=== PATIENT | male | born 1935 | race Two or more races ===

== ENCOUNTER 2016-10-26 21:16 | Emergency (ER) | payer MEDICARE, OTHER ==
[~2016-10-26] VITALS: Ht 172.7 cm; Wt 78.9 kg
[2016-10-26] MEDS ORDERED: ONDANSETRON HCL/PF 4 MG/2 ML VIAL IVP ONE (21:30)
[2016-10-26] MEDS ORDERED: IV NS 0.9% 500 ML BAG IV ONE (21:30)
--- NOTE | 2016-10-26 21:30 | NUR ---
to bed 1 ambulatroy bib son c/o n/v x2 after eating spanish food. pt aaox4 no acute distress noted, resp even and unlabored. pending er md rothman.
--- NOTE | 2016-10-26 21:31 | NUR ---
elmira [employer] DRIVER at bedside to lorna pt with orders received.
--- NOTE | 2016-10-26 21:32 | NUR ---
started sl 18g to [facility], blood drawn and sent to lab.
[2016-10-26] MEDS ORDERED: ONDANSETRON HCL/PF 4 MG/2 ML VIAL ONE (21:42)
[2016-10-26 21:43] LABS: BASOPHILS # (AUTO) 0.2 /CMM (0.0-0.2); BASOPHILS % (AUTO) 1.5 % (0.0-2.0); EOSINOPHILS # (AUTO) 0.1 /CMM (0.0-0.7); EOSINOPHILS % (AUTO) 0.5 % (0.0-6.0); HEMATOCRIT 42 % (39-51); HEMOGLOBIN 14.1 g/dL (13.5-17.5); LYMPHOCYTES # (AUTO) 0.9 /CMM (0.8-4.8); LYMPHOCYTES % (AUTO) 6.9 % (20.0-44.0); MEAN CORPUSCULAR HEMOGLOBIN 32 PG (26.0-33.0); MEAN CORPUSCULAR HGB CONC 34 g/dl (31.0-36.0); MEAN CORPUSCULAR VOLUME 94 fL (80-96); MONOCYTES # (AUTO) 0.5 /CMM (0.1-1.30); NEUTROPHILS % (AUTO) 87.1 % (43.0-81.0); PLATELET COUNT (AUTO) 161 /CMM (150-450); RDW COEFFICIENT OF VARIATION 12.6 (11.5-15.0); RED BLOOD CELL COUNT(AUTO) 4.41 MIL/uL (4.5-6.0); WHITE BLOOD COUNT (AUTO) 12.7 K/uL (4.3-11.0)
[2016-10-26 21:54] LABS: CALCIUM, SERUM 8.3 mg/dL (8.5-10.1); CARBON DIOXIDE 29 mmol/L (21-32); CHLORIDE 103 mmol/L (98-107); CREATININE 1.1 mg/dL (0.6-1.3); POTASSIUM 3.8 mmol/L (3.5-5.1); SODIUM SERUM 138 mmol/L (136-145); UREA NITROGEN, BLOOD 19 mg/dL (7-18)
[2016-10-26 21:57] LABS: INR 0.95 (0.87-1.13); PROTHROMBIN TIME 9.9 SECS (9.5-12.7)
[2016-10-26 21:59] LABS: GLUCOSE 146 mg/dL (74-106)
--- NOTE | 2016-10-26 22:01 | NUR ---
dr. yarbrough at bedside to re-eval pt.
[2016-10-26 22:02] LABS: TROPONIN I 0.024 ng/mL (0.00-0.056)
[2016-10-26] MEDS ORDERED: ASPIRIN 81 MG TAB.CHEW ONE (22:14)
[2016-10-26] MEDS ORDERED: FAMOTIDINE/PF INJ 20 MG/2 ML VIAL IV ONE ×2 (22:15→22:30)
--- NOTE | 2016-10-26 22:23 | NUR ---
CALLED NURSING [employer] OPERATOR FOR TELE BED
[2016-10-26] MEDS ORDERED: ASPIRIN 81 MG TAB.CHEW PO ONE (22:30)
--- NOTE | 2016-10-26 23:03 | NUR ---
IV removed. Catheter intact and site benign. Pressure and 4x4 applied to site. No bleeding noted. Patient discharged to home in stable condition. Written and verbal after care instructions given. Patient verbalizes understanding of instruction. ambulatory with a steady gait
[2016-10-26 23:05] VITALS: BP 138/74
== END 2016-10-26 23:06 | disposition home or self-care (01) ==
LOC: ER 21:18
DX: R11.2 Nausea with vomiting, unspecified (principal); I10 Essential (primary) hypertension; R79.1 Abnormal coagulation profile
CPT/HCPCS: 36415; 71010; 80048; 83690; 84484; 85025; 85730; 93005; 96374; 96375; 99285; A4606; J2405; J3490; J7040; Z7610

== ENCOUNTER 2021-12-01 19:52 | Inpatient (IN) | payer MEDICARE, OTHER ==
[~2021-12-01] VITALS: Ht 162.6 cm; Wt 72.6 kg
--- NOTE | 2021-12-01 20:08 | NUR ---
PATIENT BIBRA FROM HOME C/O NECK AND BODY PAIN. PATIENT WAS SEEN AT A DIFFERENT HOSPITAL AND WAS PRESCRIBED NORCO, LAST TAKEN AT 1830 WITH NO RELIEF. PATIENT ALERT AND ORIENTED X3. AMBULATORY BUT BROUGHT IN BY STRETCHER AND PLACED IN BED 11 ON MONITOR AND POX AWAITING MD PHAM.
--- NOTE | 2021-12-01 20:18 | NUR ---
BLOOD COLLECTED AND SENT TO LAB
[2021-12-01] MEDS ORDERED: HYDROMORPHONE 1 MG/1 ML DISP.SYRIN ONE (20:52)
[2021-12-01 20:57] LABS: BASOPHILS % (AUTO) 0.5 % (0.0-2.0); EOSINOPHILS % (AUTO) 0.4 % (0.0-6.0); HEMATOCRIT 27 % (39-51); HEMOGLOBIN 8.8 g/dL (13.5-17.5); LYMPHOCYTES # (AUTO) 1.4 K/uL (0.8-4.8); LYMPHOCYTES % (AUTO) 27.5 % (20.0-44.0); MEAN CORPUSCULAR HGB CONC 33 g/dl (31.0-36.0); MEAN CORPUSCULAR VOLUME 96 fL (80-96); MONOCYTES # (AUTO) 0.3 K/uL (0.1-1.30); MONOCYTES % (AUTO) 6.6 % (2.0-12.0); NEUTROPHILS # (AUTO) 3.2 K/uL (1.8-8.9); RED BLOOD CELL COUNT(AUTO) 2.78 MIL/uL (4.5-6.0); WHITE BLOOD COUNT (AUTO) 4.9 K/uL (4.3-11.0)
[2021-12-01] MEDS ORDERED: HYDROMORPHONE INJ 2 MG/ML DISP.SYRIN IV ONE (21:00)
[2021-12-01 21:23] LABS: PLATELET COUNT (AUTO) 16 K/uL (150-450)
--- NOTE | 2021-12-01 21:23 | NUR ---
PLATELETS 16
[2021-12-01 21:46] LABS: CALCIUM, SERUM 8.6 mg/dL (8.5-10.1); CREATININE 0.9 mg/dL (0.6-1.3); POTASSIUM 5.3 mmol/L (3.5-5.1)
[2021-12-01 21:48] LABS: ALBUMIN 3.7 g/dL (3.4-5.0); BILIRUBIN,DIRECT 0.3 mg/dL (0.0-0.2); BILIRUBIN,TOTAL 1.2 mg/dL (0.2-1.0); TOTAL PROTEIN, SERUM 6.8 g/dL (6.4-8.2)
[2021-12-01 22:31] LABS: BAND % (MANUAL) 3 % (0.0-5.0); EOSINOPHILS % (MANUAL) 1 % (0-4); LYMPHOCYTES % (MANUAL) 26 % (16-48); MONOCYTES % (MANUAL) 10 % (0-11.0); NEUTROPHILS % (MANUAL) 60 (42-76)
[2021-12-01] MEDS ORDERED: IV NS 0.9% 1,000 ML BAG IV ONE (23:30)
--- NOTE | 2021-12-02 00:46 | NUR ---
MRSA SWAB COLLECTED AND SENT TO LAB. PATIENT'S BELONGINGS LIST DONE.
[2021-12-02] MEDS ORDERED: MAG HYDROX/AL HYDROX/SIMETH 30 ML UDC PO PRN (01:00)
[2021-12-02] MEDS ORDERED: Z GUARD REMEDY 4 OZ OINT TP PRN (01:00)
[2021-12-02] MEDS ORDERED: HYDROCODONE/APAP 5/325MG TABLET PO PRN (01:00)
[2021-12-02] MEDS ORDERED: IV NS 0.9% 1,000 ML IV PRN (01:00)
[2021-12-02] MEDS ORDERED: ACETAMINOPHEN 325 MG TABLET PO PRN (01:00)
[2021-12-02] MEDS ORDERED: MORPHINE SULFATE INJ 2 MG/ML DISP.SYRIN IV PRN ×2 (01:00→10:30)
[2021-12-02] MEDS ORDERED: ZOLPIDEM TARTRATE 5 MG TABLET PO PRN (01:00)
[2021-12-02] MEDS ORDERED: HYDROMORPHONE INJ 2 MG/ML DISP.SYRIN IV PRN (01:00)
[2021-12-02] MEDS ORDERED: MAGNESIUM HYDROXIDE 30 ML UDC PO PRN (01:00)
[2021-12-02] MEDS ORDERED: ONDANSETRON HCL/PF 4 MG/2 ML VIAL IVP PRN (01:00)
[2021-12-02 05:37] LABS: BASOPHILS % (AUTO) 0.7 % (0.0-2.0); EOSINOPHILS % (AUTO) 0.4 % (0.0-6.0); HEMATOCRIT 25 % (39-51); HEMOGLOBIN 8.4 g/dL (13.5-17.5); LYMPHOCYTES # (AUTO) 1.4 K/uL (0.8-4.8); LYMPHOCYTES % (AUTO) 27.9 % (20.0-44.0); MEAN CORPUSCULAR HGB CONC 33 g/dl (31.0-36.0); MEAN CORPUSCULAR VOLUME 97 fL (80-96); MONOCYTES # (AUTO) 0.4 K/uL (0.1-1.30); MONOCYTES % (AUTO) 7.5 % (2.0-12.0); NEUTROPHILS # (AUTO) 3.3 K/uL (1.8-8.9); NEUTROPHILS % (AUTO) 63.5 % (43.0-81.0); RED BLOOD CELL COUNT(AUTO) 2.59 MIL/uL (4.5-6.0); WHITE BLOOD COUNT (AUTO) 5.1 K/uL (4.3-11.0)
[2021-12-02 05:42] LABS: PLATELET COUNT (AUTO) 13 K/uL (150-450)
[2021-12-02 06:01] LABS: ALBUMIN 3.3 g/dL (3.4-5.0); BILIRUBIN,TOTAL 1.7 mg/dL (0.2-1.0); CREATININE 0.8 mg/dL (0.6-1.3); MAGNESIUM 2.2 mg/dL (1.8-2.4); POTASSIUM 4.9 mmol/L (3.5-5.1); TOTAL PROTEIN, SERUM 5.9 g/dL (6.4-8.2)
[2021-12-02 06:07] LABS: BAND % (MANUAL) 5 % (0.0-5.0); BASOPHILS % (MANUAL) 0 % (0.0-2.0); EOSINOPHILS % (MANUAL) 0 % (0-4); LYMPHOCYTES % (MANUAL) 24 % (16-48); MONOCYTES % (MANUAL) 12 % (0-11.0); NEUTROPHILS % (MANUAL) 59 (42-76)
--- NOTE | 2021-12-02 07:53 | NUR ---
room 309-2
[2021-12-02 08:00] VITALS: BP 140/63
--- NOTE | 2021-12-02 08:05 | NUR ---
report given to Thuan SCHAFFER to continue care.
--- NOTE | 2021-12-02 08:20 | NUR ---
PATIENT ADMITTED FROM ER WITH MARYURI, ADMIT DX ARE PROSTATE CA, META-BONE, AND THROMBOCYTOPENIA REPORTED BY YAMINI. PATIENT AO X 2-3, CONFUSED OCCASIONALLY. SKIN IS WARM TO TOUCH KEEP CLEAN/DRY, INTACT SKIN. RESPIRATORY EVEN AND UNLABORED IN ROOM AIR. ORIENTED CALL LIGHT AND WITHIN REACH, WILL CONTINUE TO MONITOR.
--- NOTE | 2021-12-02 08:27 | NUR ---
patient left via gurney accompanied by emt in no distress. RN assigned at bedside to assume care.
--- NOTE | 2021-12-02 08:45 | NUR ---
PATIENT SEN BY , NEW ORDER MORPHINE 2MG IV Q4 HOURS AND D/C DILAUDID AND NORDAYLIN. NOTED AND CARRY OUT.
[2021-12-02] MEDS ORDERED: PANTOPRAZOLE 40 MG VIAL IV SCH (09:00)
--- NOTE | 2021-12-02 09:05 | NUR ---
PATIENT'S PLT LEVEL IS 13 AND MD MADE AWARE, NO NEW ORDER AT THIS TIME DUE TO CHEMO.
[2021-12-02] MEDS ORDERED: METR-147 PO (09:35)
[2021-12-02] MEDS ORDERED: ABIR250T2 PO (09:35)
[2021-12-02] MEDS ORDERED: PRED5TAB PO (09:35)
[2021-12-02] MEDS ORDERED: HYDR-3980 PO (12:01)
[2021-12-02] MEDS: METRONIDAZOLE 500 MG TABLET PO SCH ×2 (13:15→17:05)
[2021-12-02 16:00] VITALS: BP 138/76
[2021-12-02] MEDS: predniSONE 5 MG TABLET PO SCH (17:05)
[2021-12-02] MEDS ORDERED: ABIRATERONE 250 MG PO SCH (18:00)
--- NOTE | 2021-12-02 18:22 | NUR ---
RN CLOSING NOTE PATIENT IN BED RESTING, CONFUSED. IN NO ACUTE DISTRESS NOTED. RESPIRATORY EVEN AND UNLABORED IN ROOM AIR. SKIN IS WARM TO TOUCH, KEEP CLEAN/DRY. PATIENT REFUSED IVF AND INSERT NEW IV SITE. NO FURTHER C/O GENERALIZED/BONE PAINF. BED IN LOWEST POSITION AND LOCKED. BED ALARM IS ON AT ALL THE TIMES. ALL SAFETY MEASURED IN PLACED. CALL LIGHT WITHIN REACH, WILL ENDORSED TO NEXT SHIFT. Addendum: 12/02/21 at 1827 by KEELY SINGER RN ERROR
--- NOTE | 2021-12-02 18:27 | NUR ---
RN CLOSING NOTE PATIENT IN BED RESTING, CONFUSED. IN NO ACUTE DISTRESS NOTED. RESPIRATORY EVEN AND UNLABORED IN ROOM AIR. SKIN IS WARM TO TOUCH, KEEP CLEAN/DRY. PATIENT REFUSED IVF AND INSERT NEW IV SITE. NO FURTHER C/O GENERALIZED/BONE PAIN. KEPT LOWEST BED POSITION AND LOCKED. BED ALARM IS ON AT ALL THE TIMES. ALL SAFETY MEASURED IN PLACED. CALL LIGHT WITHIN REACH, WILL ENDORSED TO NEXT SHIFT.
[2021-12-02 20:00] VITALS: BP 119/61
--- NOTE | 2021-12-02 20:05 | NUR ---
MS RN OPENING NOTE PATIENT AWAKE IN BED, ALERT/ORIENTED X 2, CONFUSED AT TIMES PER DAYSHIFT RN. CAREGIVER ALEE AT BEDSIDE, PER CAREGIVER PATIENT'S FAMILY WANTS TO TRANSFER PATIENT TO [facility], SPOKE TO CHARGE NURSE, WILL ENDORSE TO DAYSHIFT RN. PT DENIES PAIN AT THIS TIME. PATIENT STABLE ON RA, NO S/S OF DISTRESS OR SOB NOTED, BREATHING EVEN AND UNLABORED. IV ACCESS ON RIGHT AC #20G INTACT AND PATENT. SAFETY MEASURES IN PLACE: CALL LIGHT WITHIN REACH, SIDE RAILS UP X 3, BED LOCKED IN LOWEST POSITION, BED ALARM ON. WILL CONTINUE TO MONITOR PATIENT
--- NOTE | 2021-12-02 23:27 | NUR ---
MS RN NOTE PATIENT NOTED WITH BLACK BOTTOM LIP, PHOTO TAKEN, WOUND CARE CONSULT ORDERED
[2021-12-03 06:20] LABS: BASOPHILS % (AUTO) 0.5 % (0.0-2.0); EOSINOPHILS % (AUTO) 0.7 % (0.0-6.0); HEMATOCRIT 21 % (39-51); HEMOGLOBIN 7.1 g/dL (13.5-17.5); LYMPHOCYTES # (AUTO) 1.2 K/uL (0.8-4.8); LYMPHOCYTES % (AUTO) 34.6 % (20.0-44.0); MEAN CORPUSCULAR HGB CONC 34 g/dl (31.0-36.0); MEAN CORPUSCULAR VOLUME 97 fL (80-96); MONOCYTES # (AUTO) 0.3 K/uL (0.1-1.30); NEUTROPHILS % (AUTO) 55.2 % (43.0-81.0); RED BLOOD CELL COUNT(AUTO) 2.18 MIL/uL (4.5-6.0); WHITE BLOOD COUNT (AUTO) 3.6 K/uL (4.3-11.0)
--- NOTE | 2021-12-03 06:25 | NUR ---
MS RN CLOSING NOTE PATIENT SLEEPING IN BED, ALERT/ORIENTED X 2, CONFUSED AT TIMES, PATIENT HARD OF HEARING. NO SIGNIFICANT CHANGES THROUGHOUT THE SHIFT, PATIENT SLEPT WELL ALL NIGHT, PT DENIED PAIN WHEN ASKED. PATIENT STABLE ON RA, NO S/S OF DISTRESS OR SOB NOTED, BREATHING EVEN AND UNLABORED. IV ACCESS ON RIGHT AC #20G INTACT AND INFUSING NS @ 75 ML/HR. SAFETY MEASURES IN PLACE: CALL LIGHT WITHIN REACH, SIDE RAILS UP X 3, BED LOCKED IN LOWEST POSITION, BED ALARM ON. WILL ENDORSE TO DAYSHIFT NURSE FOR CONTINUITY OF CARE
[2021-12-03 06:36] LABS: ALBUMIN 2.9 g/dL (3.4-5.0); CALCIUM, SERUM 6.7 mg/dL (8.5-10.1); CREATININE 0.9 mg/dL (0.6-1.3); MAGNESIUM 2.4 mg/dL (1.8-2.4); PHOSPHORUS 5.2 mg/dL (2.5-4.9); POTASSIUM 4.2 mmol/L (3.5-5.1); TOTAL PROTEIN, SERUM 5.6 g/dL (6.4-8.2)
[2021-12-03 07:18] LABS: PLATELET COUNT (AUTO) 7 K/uL (150-450)
--- NOTE | 2021-12-03 07:20 | NUR ---
RN OPENING NOTES RECEIVED PATIENT ASLEEP IN BED, EASILY AROUSED. A/O X3. NO SIGNS OF ACUTE DISTRESS NOTED. ON ROOM AIR, TOLERATING WELL, NO SOB NOTED, BREATHING EVEN AND UNLABORED. DENIES ANY PAIN AT THIS TIME. NOTED WITH RIGHT AC #20G, INTACT AND PATENT WITH NS AT 75 ML/HR RUNNING. SAFETY MEASURE IN PLACE.ED IN LOWEST AND LOCKED POSITION, SIDE RAILS UP X2, CALL LIGHT PLACED WITHIN EASY REACH. WILL CONTINUE TO MONITOR PATIENT.
[2021-12-03] MEDS ORDERED: MULT-24 PO (07:28)
[2021-12-03] MEDS ORDERED: TAMS-12 PO (07:28)
[2021-12-03] MEDS ORDERED: ATOR10TA PO (07:28)
[2021-12-03] MEDS ORDERED: FINA5TAB11 PO (07:28)
[2021-12-03] MEDS ORDERED: DOCU-141 PO (07:28)
[2021-12-03] MEDS ORDERED: POLY17PO4 PO (07:28)
[2021-12-03 08:00] VITALS: BP 112/55
[2021-12-03] MEDS ORDERED: ABIRATERONE ACETATE 1000 MG PO SCH (09:00)
[2021-12-03] MEDS: METRONIDAZOLE 500 MG TABLET PO SCH (09:02)
[2021-12-03] MEDS: predniSONE 5 MG TABLET PO SCH (09:02)
[2021-12-03 09:05] LABS: BAND % (MANUAL) 6 % (0.0-5.0); LYMPHOCYTES % (MANUAL) 34 % (16-48); METAMYELOCYTES % 1 % (0-0); MONOCYTES % (MANUAL) 8 % (0-11.0); MYELOCYTES % 1 % (0-0); NEUTROPHILS % (MANUAL) 50 (42-76)
--- NOTE | 2021-12-03 10:49 | NUR ---
RN NOTE PATIENT DISCHARGED AGAINST MEDICAL ADVICE. PATIENT'S CAREGIVER ALEE HILL IS HERE AND SAID THAT PATIENT'S SON BARRY MOROE WANTS THE PATIENT TO BE DISCHARGE AMA TODAY TO BE TAKEN TO [facility] PER PATIENT'S SON REQUEST. PATIENT'S SON BARRY ARRANGED TRANSPORTATION. PATIENT IS ALERT AND ORIENTED X3, EXPLAINED RISKS OF LEAVING AMA. AMA FORM SIGNED, PLACED IN CHART. ALL BELONGINGS ACCOUNTED FOR. ARM NAME BAND REMOVED. [facility] CAME @1010, REPORT GIVEN, PATIENT LEFT UNIT AND WAS PICKED UP @1030. AND CN MADE AWARE.
[2021-12-03] MEDS ORDERED: diphenhydrAMINE HCL 50 MG/ML VIAL IV ONE (12:00)
[2021-12-03] MEDS ORDERED: ACETAMINOPHEN 325 MG TABLET PO ONE (12:00)
[2021-12-03] MEDS ORDERED: PIPERACILLIN /TAZOBACTAM 4.5 G in IV D5W 50 ML IV SCH (12:00)
[2021-12-04] MEDS ORDERED: PANTOPRAZOLE 40 MG TABLET.DR PO SCH (07:30)
== END 2021-12-03 10:40 | disposition left against medical advice (07) | DRG 542 ==
LOC: ER 19:54 → TRANSITION 12-02 06:03 → MED 12-02 08:00
PROVIDERS: ADMIT Internal Medicine; ATTEND Internal Medicine
DX: C79.51 Secondary malignant neoplasm of bone (principal); D61.810 Antineoplastic chemotherapy induced pancytopenia; E87.1 Hypo-osmolality and hyponatremia; E87.5 Hyperkalemia; C61 Malignant neoplasm of prostate; Z20.822 Contact with and (suspected) exposure to COVID-19; I10 Essential (primary) hypertension; Z79.899 Other long term (current) drug therapy; D69.6 Thrombocytopenia, unspecified
CPT/HCPCS: 36415; 71045-TC; 80048-TC; 80053-TC; 80076-TC; 83735-TC; 84100-TC; 85025-TC; 87081-TC; C9113; C9803; G0378; J1170; J2270; J2543; J7030; J7060; J7512